=== PATIENT | female | born 1970 | race Caucasian/White ===

== ENCOUNTER → 2020-04-04 | Outpatient (CLI) | payer OTHER ==
[~2020-04-04] MED LIST: ASCO500T8 PO; CALC600T60 PO; CHOL10003 PO; MULT-449 PO; VIT1CAPS11 PO; ZINC30TA2 PO
[2020-04-04 16:42] LABS: MICROSCOPIC NOT IND
== END | disposition home or self-care (01) ==
LOC: STAR 15:53 → MERGE 15:53
PROVIDERS: ATTEND Obstetrics & Gynecology Female Pelvic Medicine and Reconstructive Surgery
DX: Z01.812 Encounter for preprocedural laboratory examination (principal); N85.2 Hypertrophy of uterus; N83.201 Unspecified ovarian cyst, right side; D25.9 Leiomyoma of uterus, unspecified; Z20.822 Contact with and (suspected) exposure to COVID-19
CPT/HCPCS: 81003; 87635

== ENCOUNTER 2020-04-10 05:40 | Day surgery (SDC) | payer OTHER ==
[~2020-04-10] VITALS: Ht 167.6 cm; Wt 65.4 kg
[2020-04-10] MEDS ORDERED: LACTATED RINGERS 1,000 ML IV SCH ×2 (06:30→09:30)
[2020-04-10] MEDS ORDERED: CHLORHEXIDINE 15 ML UDC MM ONE (06:30)
[2020-04-10 06:40] LABS: HCG UR SG 1.013 (1.003-1.030)
[2020-04-10] MEDS ORDERED: EPINEPHRINE 1 MG/ML, 1ML ONE (07:05)
[2020-04-10] MEDS ORDERED: BUPIVACAINE/PF 0.25% ONE (07:05)
[2020-04-10] MEDS ORDERED: INDIGO CARMINE 0.8%, 5ML ONE (07:05)
[2020-04-10] MEDS ORDERED: ACETAMINOPHEN 500 MG TABLET ONE (07:11)
[2020-04-10] MEDS ORDERED: MIDAZOLAM 1 MG/ML, 2ML ONE (07:24)
[2020-04-10] MEDS ORDERED: FENTANYL PF 250 MCG/5ML ONE (07:24)
[2020-04-10] MEDS ORDERED: ACETAMINOPHEN 500 MG TABLET PO ONE (07:30)
[2020-04-10] MEDS ORDERED: LORazepam 2 MG/ML, 1ML IVPush PRN (08:00)
[2020-04-10] MEDS ORDERED: FENTANYL PF 100 MCG/2ML IV PRN (08:00)
[2020-04-10] MEDS ORDERED: METHOCARBAMOL 1,000 MG in DEXTROSE 5% 100 ML IV PRN (08:00)
[2020-04-10] MEDS ORDERED: hydrALAzine 20 MG/ML, 1ML IV PRN (08:00)
[2020-04-10] MEDS ORDERED: LABETALOL 5MG/ML, 20ML IV PRN (08:00)
[2020-04-10] MEDS ORDERED: PROMETHAZINE 25 MG/ML, 1ML IVPush PRN (08:00)
[2020-04-10] MEDS ORDERED: PROMETHAZINE 25 MG SUPP PR PRN (08:00)
[2020-04-10] MEDS ORDERED: ONDANSETRON 2MG/ML, 2ML IVPush PRN ×2 (08:00→09:30)
[2020-04-10] MEDS ORDERED: HYDROmorphone 1 MG/ML, 1ML INJ IVPush PRN (08:00)
[2020-04-10] MEDS ORDERED: OXYcodone 5 MG/5 ML ORAL.SOL UDC PO PRN (08:00)
[2020-04-10] MEDS ORDERED: CEFAZOLIN 1,000 MG ONE (08:36)
[2020-04-10] MEDS ORDERED: NEOSTIGMINE 1 MG/ML, 10ML ONE (08:36)
[2020-04-10] MEDS ORDERED: ROCURONIUM 10MG/ML,5ML ONE (08:36)
[2020-04-10] MEDS ORDERED: SUCCINYLCHOLINE 20 MG/ML, 10ML ONE (08:36)
[2020-04-10] MEDS ORDERED: ONDANSETRON 2MG/ML, 2ML ONE (08:36)
[2020-04-10] MEDS ORDERED: GLYCOPYRROLATE 0.2MG/1ML, 5ML ONE (08:36)
[2020-04-10] MEDS ORDERED: PROPOFOL 10 MG/ML, 20ML ONE (08:36)
[2020-04-10] MEDS ORDERED: DEXAMETHASONE 4 MG/ML, 1ML ONE (08:36)
[2020-04-10] MEDS ORDERED: IBUPROFEN 600 MG TABLET PO PRN (09:30)
[2020-04-10] MEDS ORDERED: PROMETHAZINE 25 MG SUPP PR ONE (09:30)
[2020-04-10] MEDS ORDERED: HYDROcodone/APAP 5/325 TABLET PO PRN (09:30)
[2020-04-10] MEDS ORDERED: FENTANYL PF 100 MCG/2ML ONE (09:33)
[2020-04-10] MEDS ORDERED: OXYcodone 5 MG/5 ML ORAL.SOL UDC ONE (09:34)
== END 2020-04-10 15:00 | disposition home or self-care (01) ==
LOC: OUT 05:40 → MERGE 07:30 → OUT 15:00
PROVIDERS: ATTEND Obstetrics & Gynecology Female Pelvic Medicine and Reconstructive Surgery
DX: D25.9 Leiomyoma of uterus, unspecified (principal); N83.202 Unspecified ovarian cyst, left side; N83.8 Other noninflammatory disorders of ovary, fallopian tube and broad ligament; K21.9 Gastro-esophageal reflux disease without esophagitis; J45.909 Unspecified asthma, uncomplicated; F32.9 Major depressive disorder, single episode, unspecified; F41.9 Anxiety disorder, unspecified; Z79.899 Other long term (current) drug therapy; Z90.49 Acquired absence of other specified parts of digestive tract; Z98.890 Other specified postprocedural states; Z82.49 Family history of ischemic heart disease and other diseases of the circulatory system; Z83.42 Family history of familial hypercholesterolemia
CPT/HCPCS: 49322; 58554; 81025; 88307; J0171; J0690; J1100; J2250; J2405; J2704; J2710; J3010; J7120; S2900; J0330

== ENCOUNTER 2020-10-20 14:21 | Outpatient (CLI) | payer OTHER | END 2020-10-20 23:59 | disposition home or self-care (01) | LOC: CFH 14:21 | PROVIDERS: ATTEND Nurse Practitioner Family | DX: Z12.31 Encounter for screening mammogram for malignant neoplasm of breast (principal) | CPT/HCPCS: 77063; 77067 ==